=== PATIENT | female | born 1970 | race Caucasian/White ===

== ENCOUNTER → 2017-11-25 | Outpatient (CLI) | payer MEDICAID | LOC: BMCIMAGING 14:54 | PROVIDERS: ATTEND Advanced Practice Midwife | DX: Z30.431 Encounter for routine checking of intrauterine contraceptive device (principal); N85.8 Other specified noninflammatory disorders of uterus; D25.1 Intramural leiomyoma of uterus; N83.202 Unspecified ovarian cyst, left side ==

== ENCOUNTER 2018-03-08 22:17 | Emergency (ER) | payer MEDICAID ==
--- NOTE | 2018-03-08 22:27 | EDPHY ---
H & P Stated Complaint: god bite to finger Time Seen by Provider: 03/08/18 22:27 HPI/ROS: HPI CHIEF COMPLAINT: Dog bite right 4th digit. HISTORY OF PRESENT ILLNESS: Very pleasant 47-year-old female, she presents emergency room after she sustained a dog bite to her right hand. Patient was breaking up a fight between her dog and another dog. She reports the other dog has up-to-date on shots. She presents emergency room with 2 small puncture wounds to the 4th digit right hand. No big laceration. She is neurovascularly intact. There is no signs of active infection this time. She has full range of motion. No foreign body visualized on exam. No other injuries. She reports her tetanus shot is up-to-date. Past Medical History: Denies significant medical history Past Surgical History: Denies recent surgery Social History: Denies daily use of drugs alcohol tobacco. Family History: Noncontributory ROS REVIEW OF SYSTEMS: A comprehensive 10 point review of systems is otherwise negative aside from elements mentioned in the history of present illness. Exam Constitutional appears well nontoxic no acute distress triage nursing summary reviewed, vital signs reviewed, awake/alert. Eyes normal conjunctivae and sclera, EOMI, PERRLA. HENT normal inspection, atraumatic, moist mucus membranes, no epistaxis, neck supple/ no meningismus, no raccoon eyes. Respiratory clear to auscultation bilaterally, normal breath sounds, no respiratory distress, no wheezing. Cardiovascular rate normal, regular rhythm, no murmur, no edema, distal pulses normal. Gastrointestinal soft, non-tender, no rebound, no guarding, normal bowel sounds, no distension, no pulsatile mass. Genitourinary no CVA tenderness. Musculoskeletal Right Hand: 4th digit distal aspect there is 2 very small puncture wounds 1 over the dorsum of the hand 1 on the palmar side, no big laceration, good cap refill, no foreign body visualized, no tendon injury, sensation intact, no significant swelling. no midline vertebral tenderness, full range of motion, no calf swelling, no tenderness of extremities, no meningismus, good pulses, neurovascularly intact. Skin pink, warm, & dry, no rash Neurologic awake, alert and oriented x 3, AAOx3, moves all 4 extremities equally, motor intact, sensory intact, CN II-XII intact, normal cerebellar, normal vision, normal speech. Psychiatric normal mood/affect. Heme/Lymph/Immune no lymphadenopathy. Differential Diagnosis: Includes but is not limited to in a particular order dog bite right hand, need for wound care, need for x-ray Medical Decision Making: Plan for this patient x-ray 4th digit, tetanus shot is already up-to-date, will start on Augmentin here in emergency room. 1st dose given in emergency room. Prescription provided for rest. Additionally strict return precautions discussed with the patient if she has any worsening swelling, pain, drainage, discharge she should return emergency room. X-ray reviewed of the right hand. No evidence of traumatic injury or foreign body. Interpreted by myself. Patient's wound is been copiously irrigated and cleaned in the emergency room. No foreign body visualized. Wound is clean and intact. Augmentin given. Augmentin prescription. Return precautions discussed with the patient she understands. Source: Patient - Personal History LMP (Females 10-55): IUD In Place Current Tetanus Diphtheria and Acellular Pertussis (TDAP): Yes Tetanus Vaccine Date: < 10 years - Medical/Surgical History Hx Asthma: Yes Hx Chronic Respiratory Disease: No Hx Diabetes: No Hx Cardiac Disease: No Hx Renal Disease: No Hx Cirrhosis: No Hx Alcoholism: No Hx HIV/AIDS: No Hx Splenectomy or Spleen Trauma: No Other PMH: anemia - Social History Smoking Status: Never smoked Constitutional: Initial Vital Signs Temperature (C) 36.7 C 03/08/18 22:24 Heart Rate 72 03/08/18 22:24 Respiratory Rate 20 03/08/18 22:24 Blood Pressure 118/68 03/08/18 22:24 O2 Sat (%) 94 03/08/18 22:24 O2 Delivery Mode Room Air Allergies/Adverse Reactions: venom-honey bee [bee venom (honey bee)] Allergy (Verified 03/08/18 22:22) Home Medications: Medication Instructions Recorded Amoxicillin/Clavulanate Pot 875 mg PO BID #14 tab 03/08/18 [Augmentin 875 MG TAB (*)] Medical Decision Making - Data Points Medications Given: Discontinued Medications Amoxicillin/Clavulanate Potassium (Augmentin 875mg) 875 mg PO EDNOW ONE PRN Reason: Protocol Stop: 03/08/18 22:33 Last Admin: 03/08/18 22:50 Dose: 875 mg Departure - Departure Disposition: Home, Routine, Self-Care Clinical Impression: Dog bite Qualifiers: Encounter type: initial encounter Qualified Code(s): W54.0XXA - Bitten by dog, initial encounter Condition: Good Instructions: Animal Bite (ED) Additional Instructions: 1. Watch the bite closely for signs of infection this includes worsening redness , swelling, pain, fever 2. Antibiotic as prescribed. Complete her entire course. 3. Return to the emergency room if you have any further questions or concerns Referrals: NONE *PRIMARY CARE P,. [Primary Care Provider] - As per Instructions Prescriptions: Amoxicillin/Clavulanate Pot [Augmentin 875 MG TAB (*)] 875 mg PO BID #14 tab
[2018-03-08] MEDS ORDERED: AMOXICILLIN/CLAVULANATE POT 875/125 MG TAB PO ONE (22:32)
[2018-03-08 23:17] VITALS: BP 114/64
== END 2018-03-08 23:17 | disposition home or self-care (01) ==
DX: S61.254A Open bite of right ring finger without damage to nail, initial encounter (principal); J45.909 Unspecified asthma, uncomplicated; W54.0XXA Bitten by dog, initial encounter; Y99.8 Other external cause status; Y93.89 Activity, other specified